=== PATIENT | female | born 1960 | race Caucasian/White ===

== ENCOUNTER 2018-09-15 11:52 | Emergency (ER) | payer BC ==
--- NOTE | 2018-09-15 12:44 | EDM.PDOC ---
ED HPI GENERAL MEDICAL PROBLEM - General Chief Complaint: General Stated Complaint: LEFT NUMB AND BLADDER CONTROL ISSUES FROM FALL Time Seen by Provider: 09/15/18 13:23 Source of Information: Reports: Patient History Limitations: Reports: No Limitations - History of Present Illness INITIAL COMMENTS - FREE TEXT/NARRATIVE: pt slipped on some ice about a week ago and landed on her back. This was more on the left than the rt. She has been having pain since that time. She had xrays where she was seen at [place] and there were no fractures. She returns today because she has a increased pain in the left upper lumbar. and she has had 3 instances when she has lost control of her bladder. She also has noted some numbness in the left arm that was brief and this is bacjk to normal. Onset: Gradual Duration: Day(s): Location: Reports: Neck, Back, Other ( bladder control) Associated Symptoms: Reports: No Other Symptoms Left Back Pain Score (Numeric/FACES): 5 - Related Data Allergies Allergy/AdvReac Type Severity Reaction Status Date / Time zolpidem [From Ambien] Allergy Other Verified 09/15/18 13:00 Home Meds: Home Meds Baclofen 10 mg PO TID 09/15/18 [History] Diclofenac Sodium [Voltaren] 100 gm TP ASDIRECTED 09/15/18 [History] FLUoxetine HCl [Prozac] 60 mg PO TID 09/15/18 [History] Levothyroxine 25 mcg PO ACBREAKFAST 09/15/18 [History] buPROPion [Wellbutrin] 100 mg PO BID 09/15/18 [History] hydrOXYzine pamoate [Vistaril] 25 - 50 mg PO Q8H PRN 09/15/18 [History] traZODone 50 mg PO BEDTIME 09/15/18 [History] ED ROS GENERAL - Review of Systems Review Of Systems: See Below Constitutional: Reports: Other ( difficulty with bladder control ) HEENT: Reports: No Symptoms Respiratory: Reports: No Symptoms Cardiovascular: Reports: No Symptoms Endocrine: Reports: No Symptoms GI/Abdominal: Reports: No Symptoms : Reports: Incontinence Musculoskeletal: Reports: Back Pain Skin: Reports: No Symptoms ED EXAM, GENERAL - Physical Exam Exam: See Below Free Text/Narrative:: pt arrived after a fall and states she is having increased pain and difficulty controlling her bladder. She also did have a brief episode of numbness in the left arm. Exam Limited By: No Limitations General Appearance: Alert, Moderate Distress Ears: Normal TMs Nose: Normal Inspection Throat/Mouth: Normal Inspection Head: Atraumatic Neck: Normal Inspection, Other (pt did have the episode of numbness in the left arm. ) Respiratory/Chest: No Respiratory Distress Cardiovascular: Regular Rate, Rhythm GI/Abdominal: Soft, Non-Tender (Female) Exam: Deferred Rectal (Female) Exam: Deferred Back Exam: Other (pt is very tendwr in the left upper lumbar area. ) Extremities: Redness, Other ( Pt has normal strength in the left arm with normal motion. ) Neurological: Alert, Oriented Course - Vital Signs Last Recorded V/S: Last Vital Signs Temp 36.4 C 09/15/18 12:36 Pulse 76 09/15/18 12:40 Resp 16 09/15/18 12:40 BP 126/71 09/15/18 12:40 Pulse Ox 93 L 09/15/18 12:40 - Orders/Labs/Meds Orders: Active Orders 24 hr Category Date Time Status COMPREHENSIVE METABOLIC PN,CMP [CHEM] Urgent Lab 09/15/18 12:56 Received CULTURE URINE [RM] Stat Lab 09/15/18 14:56 Received Labs: Laboratory Tests 09/15/18 09/15/18 Range/Units 12:56 13:08 WBC 7.2 (4.5-11.0) K/uL RBC 3.86 (3.30-5.50) M/uL Hgb 11.4 L (12.0-15.0) g/dL Hct 35.1 L (36.0-48.0) % MCV 91 (80-98) fL MCH 30 (27-31) pg MCHC 33 (32-36) % Plt Count 308 (150-400) K/uL Neut % (Auto) 62 (36-66) % Lymph % (Auto) 28 (24-44) % [place] % (Auto) 7 H (2-6) % Eos % (Auto) 2 (2-4) % Baso % (Auto) 1 (0-1) % Urine Color Yellow Urine Appearance Slightly cloudy Urine pH 5.0 (4.5-8.0) Ur Specific [place] 1.025 (1.008-1.030) Urine Protein Trace (NEGATIVE) mg/dL Urine Glucose (UA) Normal (NEGATIVE) mg/dL Urine Ketones Negative (NEGATIVE) mg/dL Urine Occult Blood Negative (NEGATIVE) Urine Nitrite Negative (NEGATIVE) Urine Bilirubin Negative (NEGATIVE) Urine Urobilinogen Normal (NORMAL) mg/dL Ur Leukocyte Esterase Large (NEGATIVE) Urine RBC Not seen (0-5) Urine WBC 10-20 H (0-5) Ur Epithelial Cells Rare Amorphous Sediment Not seen Urine Bacteria Few Urine Mucus Numerous Meds: Medications Discontinued Medications Generic Name Dose Route Start Last Admin Trade Name Freq PRN Reason Stop Dose Admin Hydromorphone HCl 0.5 mg 09/15/18 13:34 09/15/18 14:03 Dilaudid IM 09/15/18 13:35 0.5 mg ONETIME ONE Administration - Re-Assessments/Exams Free Text/Narrative Re-Assessment/Exam: 09/15/18 15:13 Pt had a cat scan of the neck which showed mild degenerative changes. He had a cat scan of the lumbar area which did not reveal any fractures. Her urine showed a possible infection present. The dilaudid did give relief of the back pain. Departure - Departure Time of Disposition: 14:56 Disposition: Home, Self-Care 01 Condition: Fair Clinical Impression: UTI (urinary tract infection), Lumbar contusion - Discharge Information Referrals: Aurea Sparks MD [Primary Care Provider] - Forms: ED Department Discharge Care Plan Goals: moist warm packs to the left mid to upper lumbar. area, rest, flexeril 10mg hs , norco 5/325 q6h prn for pain. Use motrin 600mg tid with alot of fluids, cipro 500mg bid for 7 days. Pt will be seeing her regular provider on . send a copy of the cat scan reports with her. - My Orders Last 24 Hours: My Active Orders 09/15/18 12:56 COMPREHENSIVE METABOLIC PN,CMP [CHEM] Urgent 09/15/18 14:56 CULTURE URINE [RM] Stat - Assessment/Plan Last 24 Hours: My Active Orders 09/15/18 12:56 COMPREHENSIVE METABOLIC PN,CMP [CHEM] Urgent 09/15/18 14:56 CULTURE URINE [RM] Stat
[2018-09-15] MEDS ORDERED: HYDROmorphone 0.5 MG/0.5 ML Syringe IM ONE (13:34)
--- NOTE | 2018-09-15 14:31 | CT ---
Cervical Spine wo Cont CLINICAL HISTORY: Neck pain, problems with bladder TECHNIQUE: Multiple CT sections were taken through the cervical spine in the transaxial projection. Coronal and sagittal views were reconstructed. Images were viewed at bone as well as soft tissue windows on a digital workstation. Auto dosage reduction and iterative reconstruction techniques employed. FINDINGS: Sagittal images show the cervical vertebral body configuration be normal throughout. There is some straightening of the lower cervical lordosis. There is diffuse disc space narrowing. Alignment is maintained. Pedicles appear intact. There is some osteoarthritis in the apophyseal joints. There is no significant encroachment on the thecal sac. There is some mild bony foraminal encroachment on the left at C6-7 IMPRESSION: No fracture or subluxation Mild diffuse degenerative disc disease and mild osteoarthritis in the lower cervical apophyseal joints
--- NOTE | 2018-09-15 14:34 | CT ---
Lumbar Spine wo Cont CLINICAL HISTORY: Lumbar pain COMPARISON: None TECHNIQUE: Multiple contiguous axial sections were obtained of the lumbar spine without the IV infusion of contrast material This was followed by sagittal and coronal MPRs. Auto dosage reduction and iterative reconstruction techniques employed. FINDINGS: The lumbar vertebral configuration is normal throughout. Alignment is maintained. There is some disc space narrowing at L5-S1 with mild accompanying spondylosis and S1. There is mild osteoarthritis in the lower lumbar facets. Pedicles are intact. There is no significant encroachment on the spinal canal or neural foramina. There is mild soft tissue ill-definition in the upper pericaval region. This is likely related to technique. No masses seen IMPRESSION: No fracture or subluxation Degenerative disc changes at L5-S1 with some mild osteoarthritis in the lower lumbar facets
== END 2018-09-15 16:21 | disposition home or self-care (01) ==
LOC: JP.ED 11:52
DX: S30.0XXA Contusion of lower back and pelvis, initial encounter (principal); N39.0 Urinary tract infection, site not specified; Z79.899 Other long term (current) drug therapy; Z88.8 Allergy status to other drugs, medicaments and biological substances; W00.0XXA Fall on same level due to ice and snow, initial encounter
CPT/HCPCS: 36415; 72125; 72125-26; 72131; 72131-26; 80053; 81001; 85025; 87086; 96372; 99284-25; J1170

== ENCOUNTER 2019-12-07 20:39 | Emergency (ER) | payer BC ==
--- NOTE | 2019-12-07 21:38 | EDM.PDOC ---
ED HPI GENERAL MEDICAL PROBLEM - General Chief Complaint: Head Injury Stated Complaint: FELL Time Seen by Provider: 12/07/19 21:33 Source of Information: Reports: Patient History Limitations: Reports: No Limitations - History of Present Illness INITIAL COMMENTS - FREE TEXT/NARRATIVE: p arrived a history of missing a step and falling off of the deck. She hit the back of her head on garden rock. She was not knocked out. This did happen 1.5 hours ago. He has a low grade headache. She is not vomiting. She is feeling normal. She has pain on the left side of her chest. She hurts when she takes a deep breath. She has pain when she walks on her rt foot in the ankle area. Onset: Today, Sudden Duration: Hour(s): Location: Reports: Chest, Lower Extremity, Right Associated Symptoms: Reports: No Other Symptoms Left Thoracic Pain Score (Numeric/FACES): 7 - Related Data Allergies Allergy/AdvReac Type Severity Reaction Status Date / Time zolpidem [From Ambien] Allergy Other Verified 12/07/19 20:55 Home Meds: Home Meds FLUoxetine HCl [Prozac] 60 mg PO TID 09/15/18 [History] Levothyroxine 25 mcg PO ACBREAKFAST 09/15/18 [History] buPROPion [Wellbutrin] 100 mg PO BID 09/15/18 [History] traZODone 50 mg PO BEDTIME 09/15/18 [History] Alendronate [Fosamax] 70 mg PO WEEKLY 12/07/19 [History] LORazepam [Lorazepam] 1 tab PO BEDTIME 12/07/19 [History] Levocetirizine Dihydrochloride [Allergy Relief] 1 tab PO BID 12/07/19 [History] carisoprodoL [Carisoprodol] 1 tab PO BEDTIME 12/07/19 [History] Past Medical History HEENT History: Reports: Impaired Vision Respiratory History: Reports: Asthma Gastrointestinal History: Reports: Chronic Constipation Genitourinary History: Reports: Urinary Incontinence [employer]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: Musculoskeletal History: Reports: Fracture, Osteoporosis, Other (See Below) Other Musculoskeletal History: osteopenia Neurological History: Reports: Concussion, Head Trauma Psychiatric History: Reports: Anxiety, Depression Endocrine/Metabolic History: Reports: Hypothyroidism Dermatologic History: Reports: Eczema - Infectious Disease History Infectious Disease History: Reports: Chicken Pox, Mumps - Past Surgical History HEENT Surgical History: Reports: Tonsillectomy GI Surgical History: Reports: Bariatric Procedure, Colonoscopy Female Surgical History: Reports: Section, Hysterectomy Social & Family History - Family History Family Medical History: Noncontributory - Tobacco Use Smoking Status *Q: Never Smoker - Caffeine Use Caffeine Use: Reports: Soda Other Caffeine Use: 4 cups per day of coffee. - Recreational Drug Use Recreational Drug Use: No ED ROS GENERAL - Review of Systems Review Of Systems: See Below Constitutional: Reports: No Symptoms HEENT: Reports: No Symptoms Respiratory: Reports: Other (pain on the left chest when she takes a deep breath. ) Cardiovascular: Reports: No Symptoms Endocrine: Reports: No Symptoms GI/Abdominal: Reports: No Symptoms : Reports: No Symptoms Musculoskeletal: Reports: Other (left chest and rt ankle pain. ) Skin: Reports: No Symptoms Neurological: Reports: No Symptoms Psychiatric: Reports: Anxiety ED EXAM, HEAD INJURY - Physical Exam Exam: See Below Text/Narrative:: pt arrived after a fall at home. She fell about 2 fet off of her deck. She hit the rt posterior portion of her head on a rock and she hit her left chest and twisted her rt ankle. Exam Limited By: No Limitations General Appearance: Alert, Anxious, Moderate Distress Head: Other (pt has a swelling in the rt post area. Pupils are equal and reactive. ) Ears: Normal TMs Nose: Normal Inspection Throat/Mouth: Normal Inspection Neck: Non-Tender Respiratory: Other (pt is tender to palpate in the left chest. It hurts to take a deep breath. ) Cardiovascular: Regular Rate, Rhythm GI/Abdominal Exam: Soft, Non-Tender (Female) Exam: Deferred Rectal (Female) Exam: Deferred Back Exam: Normal Inspection Extremities: Other (pt is tender over the lateral aspect of her rt ankle. Therer is minimal swelling. ) Neurologic: Alert, Oriented x 3 Course - Vital Signs Last Recorded V/S: Last Vital Signs Temp 36.8 C 12/07/19 21:02 Pulse 100 12/07/19 21:02 Resp 18 12/07/19 21:02 BP 137/79 12/07/19 21:02 Pulse Ox 97 12/07/19 21:02 - Orders/Labs/Meds Orders: Active Orders 24 hr Category Date Time Status Ankle Min 3V Rt [CR] Stat Exams 12/07/19 21:24 Taken Meds: Medications Discontinued Medications Generic Name Dose Route Start Last Admin Trade Name Lenore PRN Reason Stop Dose Admin Hydrocodone Bitart/Acetaminophen 1 tab 12/07/19 22:03 12/07/19 22:09 Gay 325-5 Mg PO 12/07/19 22:04 1 tab ONETIME ONE Administration Ketorolac Tromethamine 60 mg 12/07/19 21:58 12/07/19 22:05 Toradol IM 12/07/19 21:59 60 mg ONETIME ONE Administration - Re-Assessments/Exams Free Text/Narrative Re-Assessment/Exam: 12/07/19 22:53 ankle and chest xray did not reveal fractures, Pt was given torodol 60mg im and norco 5/325 with some relief. Departure - Departure Time of Disposition: 22:54 Disposition: Home, Self-Care 01 Condition: Fair Clinical Impression: Contusion of head, Contusion of left chest wall, Mild sprain of right ankle - Discharge Information Referrals: Aurea Sparks MD [Primary Care Provider] - Forms: ED Department Discharge Care Plan Goals: cool pack to left chest, motrin 600mg qid, norco 5/325 q6h,#10 avoid over protecting the chest, encourage deep breathing. Sepsis Event Note - Evaluation Sepsis Screening Result: No Definite Risk - Focused Exam Vital Signs: Vital Signs Temp Pulse Resp BP Pulse Ox 12/07/19 21:02 36.8 C 100 18 137/79 97 12/07/19 20:53 36.8 C 100 18 137/79 97 Date Exam was Performed: 12/07/19 Time Exam was Performed: 22:57 - My Orders Last 24 Hours: My Active Orders 12/07/19 21:24 Ankle Min 3V Rt [CR] Stat - Assessment/Plan Last 24 Hours: My Active Orders 12/07/19 21:24 Ankle Min 3V Rt [CR] Stat
[2019-12-07] MEDS ORDERED: Ketorolac 60 MG/2 ML SDV IM ONE (21:58)
[2019-12-07] MEDS ORDERED: Acetaminophen/HYDROcodone 325-5 MG Tab PO ONE (22:03)
--- NOTE | 2019-12-07 22:41 | CRLCR ---
INDICATION: Left-sided rib pain following fall TECHNIQUE: Chest and left ribs 2 views. COMPARISON: None FINDINGS: Cardiovascular and mediastinum: Heart size and vasculature are normal in caliber and appearance. Mediastinum is within normal limits. Lungs and pleural spaces: Lungs are clear. No sign of infiltrate or mass. No sign of pleural effusion. No pneumothorax. Bones and soft tissues: Detailed oblique images of the left ribs demonstrate no fractures or bone lesions. IMPRESSION: Unremarkable chest and left ribs. Dictated by Timothy Otto MD @ 12/07/2019 10:39:26 PM Dictated by: Timothy Otto MD @ 12/07/2019 22:39:34 (Electronically Signed)
--- NOTE | 2019-12-08 10:00 | CR ---
Ankle Min 3V Rt CLINICAL HISTORY: Right ankle pain FINDINGS: The soft tissues are mildly prominent. Ankle mortise is intact. Articular surfaces are smooth. There is a slight linear irregularity in the distal fifth metatarsal on the oblique film. This is of questioned significance. IMPRESSION: Ankle appears intact Questionable irregular lucency across the distal aspect of the fifth metatarsal on a single view. Fracture is not excluded. If the patient is point tender over this area, additional foot images are recommended
== END 2019-12-07 23:10 | disposition home or self-care (01) ==
LOC: JP.ED 20:39
DX: S93.401A Sprain of unspecified ligament of right ankle, initial encounter (principal); S20.212A Contusion of left front wall of thorax, initial encounter; S00.81XA Abrasion of other part of head, initial encounter; J45.909 Unspecified asthma, uncomplicated; F41.9 Anxiety disorder, unspecified; F32.9 Major depressive disorder, single episode, unspecified; E03.9 Hypothyroidism, unspecified; Z88.8 Allergy status to other drugs, medicaments and biological substances; Z79.899 Other long term (current) drug therapy; W10.9XXA Fall (on) (from) unspecified stairs and steps, initial encounter
CPT/HCPCS: 71101; 73610; 96372; 99283; A9270; J1885

== ENCOUNTER 2021-03-05 14:50 | Emergency (ER) | payer BC ==
--- NOTE | 2021-03-05 14:58 | EDM.PDOC ---
ED HPI GENERAL MEDICAL PROBLEM - General Chief Complaint: Gastrointestinal Problem Stated Complaint: Chronic Constipation Time Seen by Provider: 03/05/21 15:20 Source of Information: Reports: Patient History Limitations: Reports: No Limitations - History of Present Illness INITIAL COMMENTS - FREE TEXT/NARRATIVE: This is a 60 year old female presenting with abdominal pain and nausea. She reports a history of chronic constipation and states she hasn't had a bowel movement for at least 5 days and even that bowel movement was quite small. She reports that today she developed more severe abdominal pain that is more localized in the LLQ. The pain is constant and is associated with nausea, but no vomiting. She has tried miralax and mag citrate over the past few days without results. She has used enemas in the past, but not for many years. She is concerned because she has never had pain this severe from her constipation. She denies fever or chills. she reports a history of chronic urinary incontinence, but denies any new urinary symptoms. Abdomen Pain Score (Numeric/FACES): 8 - Related Data Allergies Allergy/AdvReac Type Severity Reaction Status Date / Time zolpidem [From Ambien] Allergy Other Verified 03/05/21 15:12 Home Meds: Home Meds FLUoxetine HCl [Prozac] 60 mg PO TID 09/15/18 [History] Levothyroxine 25 mcg PO ACBREAKFAST 09/15/18 [History] buPROPion [Wellbutrin] 100 mg PO BID 09/15/18 [History] traZODone 50 mg PO BEDTIME 09/15/18 [History] D3-50 1 cap PO WEEKLY 03/05/21 [History] Past Medical History HEENT History: Reports: Impaired Vision Respiratory History: Reports: Asthma Gastrointestinal History: Reports: Chronic Constipation Genitourinary History: Reports: Urinary Incontinence 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: Musculoskeletal History: Reports: Fracture, Osteoporosis, Other (See Below) Other Musculoskeletal History: osteopenia Neurological History: Reports: Concussion, Head Trauma Psychiatric History: Reports: Anxiety, Depression Endocrine/Metabolic History: Reports: Hypothyroidism Dermatologic History: Reports: Eczema - Infectious Disease History Infectious Disease History: Reports: Chicken Pox, Mumps - Past Surgical History HEENT Surgical History: Reports: Tonsillectomy GI Surgical History: Reports: Bariatric Procedure, Colonoscopy Female Surgical History: Reports: Section, Hysterectomy Social & Family History - Family History Family Medical History: No Pertinent Family History - Caffeine Use Caffeine Use: Reports: Soda Other Caffeine Use: 4 cups per day of coffee. ED ROS GENERAL - Review of Systems Review Of Systems: Comprehensive ROS is negative, except as noted in HPI. ED EXAM, GI/ABD - Physical Exam Exam: See Below General Appearance: Alert, No Apparent Distress Head: Atraumatic, Normocephalic Neck: Supple, Full Range of Motion Respiratory/Chest: No Respiratory Distress, Lungs Clear, Normal Breath Sounds, No Accessory Muscle Use Cardiovascular: Regular Rate, Rhythm GI/Abdominal Exam: Soft, Tender (diffusely, but worst in the LLQ). No: Guarding, Rigid, Rebound Rectal (Female) Exam: Normal Rectal Tone, Other (No stool noted in rectal vault) Extremities: Normal Range of Motion Neurological: Alert, Oriented, CN II-XII Intact Psychiatric: Normal Affect, Normal Mood Skin Exam: Warm, Dry, No Rash Course - Vital Signs Last Recorded V/S: Last Vital Signs Temp 97.8 F 03/05/21 15:11 Pulse 62 03/05/21 15:11 Resp 12 03/05/21 15:11 BP 106/66 03/05/21 15:11 Pulse Ox 93 L 03/05/21 15:11 - Orders/Labs/Meds Labs: Laboratory Tests 03/05/21 03/05/21 03/05/21 Range/Units 15:51 15:51 15:51 WBC 5.7 (4.5-11.0) K/uL RBC 4.36 (3.30-5.50) M/uL Hgb 11.7 L (12.0-15.0) g/dL Hct 37.7 (36.0-48.0) % MCV 87 (80-98) fL MCH 27 (27-31) pg MCHC 31 L (32-36) % Plt Count 253 (150-400) K/uL Neut % (Auto) 61.3 (36-66) % Lymph % (Auto) 24.7 (24-44) % [place] % (Auto) 11.1 H (2-6) % Eos % (Auto) 2.5 (2-4) % Baso % (Auto) 0.4 (0-1) % Sodium 143 (140-148) mmol/L Potassium 4.2 (3.6-5.2) mmol/L Chloride 105 (100-108) mmol/L Carbon Dioxide 27 (21-32) mmol/L Anion Gap 10.8 (5.0-14.0) mmol/L BUN 18 (7-18) mg/dL Creatinine 1.0 (0.6-1.0) mg/dL Est Cr Clr Drug Dosing 50.73 mL/min Estimated GFR (MDRD) 57 L (>60) Glucose 107 H (74-106) mg/dL Lactic Acid 1.0 (0.4-2.0) mmol/L Calcium 8.7 (8.5-10.1) mg/dL Total Bilirubin 0.2 (0.2-1.0) mg/dL AST 19 (15-37) U/L ALT 22 (12-78) U/L Alkaline Phosphatase 143 H (46-116) U/L Total Protein 6.6 (6.4-8.2) g/dL Albumin 3.4 (3.4-5.0) g/dL Globulin 3.2 (2.3-3.5) g/dL Albumin/Globulin Ratio 1.1 L (1.2-2.2) Lipase 156 (73-393) U/L Meds: Medications Discontinued Medications Generic Name Dose Route Start Last Admin Trade Name Freq PRN Reason Stop Dose Admin Sodium Chloride 100 mls @ 3 mls/sec 03/05/21 16:00 03/05/21 16:41 Normal Saline IV 3 mls/sec ASDIRECTED KIKI Administration Iopamidol 150 ml 03/05/21 15:56 03/05/21 16:41 Iopamidol 612 Mg/Ml 150 Ml Bottle IV 03/06/21 15:57 150 ml . DIRECTED PRN Administration RADIOLOGY EXAM Sodium Chloride 10 ml 03/05/21 15:56 03/05/21 15:59 Sodium Chloride 0.9% 10 Ml Sdv FLUSH 03/05/21 15:57 10 ml ONETIME ONE Administration Departure - Departure Time of Disposition: 19:52 Disposition: Home, Self-Care 01 Clinical Impression: Abdominal pain, Constipation - Discharge Information Instructions: High-Fiber Diet, Chronic Constipation Referrals: Aurea Sparks MD [Primary Care Provider] - Forms: ED Department Discharge Additional Instructions: Your labs and CT scan of your abdomen today look normal aside from the constipation. Continue to use miralax and mag citrate at home for constipation. You can use over the counter enemas at home as well. Follow up with your primary care provider if you are not improving. Sepsis Event Note (ED) - Focused Exam Vital Signs: Vital Signs Temp Pulse Resp BP Pulse Ox 03/05/21 15:11 97.8 F 62 12 106/66 93 L 03/05/21 15:03 97.8 F 62 12 106/66 93 L - Assessment/Plan Assessment:: This is a 60 year old female presenting with abdominal pain. She has a history of chronic constipation, but has never had abdominal pain this severe before. She is afebrile on arrival, but does have some LLQ tenderness without rebound or guarding. Her labs are unrevealing aside from mild anemia that appears chronic. A CT abd/pelvis was obtained given her LLQ tenderness and concern for other intra-abdominal pathology besides constipation. The CT was negative for acute intra-abdominal pathology, but did note significant constipation. The patient was treated with enema x 2 without significant result. However, she was requesting discharge home. On reassessment, she has a benign abdominal exam and I think she is appropriate for discharge home with continued outpatient management of constipation with miralax and mag citrate. She should follow up with her primary care provider if not improving. instructed to return to the ED for any new or worsening symptoms, including fever, worsening pain, vomiting, or other concerning symptoms.
[2021-03-05] MEDS ORDERED: Sodium Chloride 0.9% 10 ML SDV FLUSH ONE (15:56)
[2021-03-05] MEDS ORDERED: Iopamidol 612 MG/ML 150 ML Bottle IV PRN (15:56)
[2021-03-05] MEDS ORDERED: Sodium Chloride 0.9% 100 ML IV SCH (16:00)
--- NOTE | 2021-03-05 16:52 | CRLCT ---
For Patients: As a result of the Century Cures Act, medical imaging exams and procedure reports are released immediately into your electronic medical record. You may view this report before your referring provider. If you have questions, please contact your health care provider. Indication: Lower quadrant pain constipation Technique: Contrast enhanced CT abdomen and pelvis Comparison: No comparison Findings: Heart size normal. Basilar atelectasis with gastric bypass changes. Liver spleen adrenal glands are unremarkable. Gallbladder unremarkable. Normal caliber abdominal aorta. Normal appendix Left renal cyst. Additional too small to characterize tiny low-density lesion left kidney. Kidneys were otherwise unremarkable. Large amount stool within the colon no obstruction. No suspicious bony lesions. Impression: 1. No acute findings abdomen pelvis. Large amount of stool within the colon. Please note that all CT scans at this facility use dose modulation, iterative reconstruction, and/or weight-based dosing when appropriate to reduce radiation dose to as low as reasonably achievable. Dictated by Hanna Church MD @ 03/05/2021 4:52:[address] Hanna Church @ Mar 05 2021 4:52PM
== END 2021-03-05 20:09 | disposition home or self-care (01) ==
LOC: JP.ED 14:50
DX: K59.00 Constipation, unspecified (principal); E03.9 Hypothyroidism, unspecified; Z79.899 Other long term (current) drug therapy; Z88.8 Allergy status to other drugs, medicaments and biological substances
CPT/HCPCS: 36415; 74177; 80053; 83605; 83690; 85025; 99284; Q9967